=== PATIENT | female | born 1960 | race Caucasian/White ===

== ENCOUNTER 2018-02-25 13:14 | Inpatient (IN) | payer MEDICARE, MEDICAID ==
[2018-02-25 13:51] LABS: #Basophils 0.1 thou/uL (0.0-0.2); #Lymphocytes 2.6 thou/uL (1.20-3.40); #Monocytes 1.5 thou/uL (0.11-0.59); #Neutrophils 10.6 thou/uL (1.40-6.50); %Basophils 0.4 % (0.0-1.0); %Eosinophils 0.1 % (0.0-10.0); %Lymphocytes 17.7 % (21.0-51.0); %Monocytes 10.1 % (0.0-10.0); %Neutrophils 71.7 % (42.0-75.0); Hemoglobin 13.2 g/dL (12.0-16.0); Mean Corpuscular HGB CONC 35.4 g/dL (32.0-36.0); Mean Corpuscular Hemoglobin 33.9 pg (27.0-31.0); Mean Corpuscular Volume 95.8 fl (81.0-99.0); Mean Platelet Volume 7.1 fL (7.4-10.4); Platelet Count 257 thou/uL (130-400); RBC Distribution Width 11.5 % (11.5-14.5); Red Blood Cell (RBC) Count 3.88 mill/uL (4.20-5.40); White Blood Cell (WBC) Count 14.8 thou/uL (4.8-10.8)
[2018-02-25 14:12] LABS: Acetaminophen Less than 6.0 mcg/mL (10.0-30.0); Alcohol Less than 10 mg/dL (Less than 10); Salicylate Less than 8.0 mg/dL (15.0-30.0)
[2018-02-25 14:13] LABS: ALT (SGPT) 41 U/L (8-55); AST (SGOT) 66 U/L (5-34); Alkaline Phosphatase 125 U/L (40-150); Anion Gap 12 mmol/L (10-20); BUN (Urea Nitrogen) 24 mg/dL (9.8-20.1); Bilirubin, Total 0.8 mg/dL (0.2-1.2); CK (CPK) 2150 U/L (29-168); Calc. Creatinine Clearance 0 mL/min (70-130); Calcium 8.8 mg/dL (7.8-10.44); Carbon Dioxide 23 mmol/L (22-29); Chloride 109 mmol/L (98-107); Estimated GFR-MDRD 59; Globulin 2.3 g/dL (2.4-3.5); Glucose 160 mg/dL (70-105); Protein, Total 6.3 g/dL (6.0-8.3); Sodium 141 mmol/L (136-145)
[2018-02-25 14:28] LABS: Potassium 2.8 mmol/L (3.5-5.1)
[2018-02-25] MEDS ORDERED: Sodium Chloride 0.9% 1,000 ML IV SCH (14:45)
[2018-02-25 14:53] LABS: Troponin I Less than 0.010 ng/mL (< 0.028)
[2018-02-25] MEDS ORDERED: Potassium Chloride 20 MEQ in Premix Bag 1 BAG IVPB SCH (15:00)
[2018-02-25 16:31] VITALS: BMI 31.1
[2018-02-25] MEDS ORDERED: cloNIDine 0.1 MG TAB PO PRN (16:37)
[2018-02-25] MEDS ORDERED: Benzonatate 100 MG CAP PO PRN (16:37)
[2018-02-25] MEDS ORDERED: hydrALAZINE 20 MG/ML VIAL SLOW IVP PRN (16:37)
[2018-02-25] MEDS ORDERED: Ondansetron ODT 4 MG TAB PO PRN (16:37)
[2018-02-25] MEDS ORDERED: Lorazepam 2 MG/ML VIAL SLOW IVP PRN (16:37)
[2018-02-25] MEDS ORDERED: Ondansetron HCl/PF 4 MG/2 ML Vial IVP PRN (16:37)
[2018-02-25] MEDS: NS 0.9% w/ 40 MEQ KCL 1,000 ML IV SCH (17:39)
[2018-02-25] MEDS: Acetaminophen 500 MG TAB PO PRN (17:39)
--- NOTE | 2018-02-25 19:58 | HP ---
DATE OF ADMISSION: 02/25/2018 PRIMARY CARE PHYSICIAN: Jose lorenz. CHIEF COMPLAINT: Altered mental status. HISTORY OF PRESENT ILLNESS: This is a 58-year-old female with history of bipolar disorder, schizophrenia, anxiety and depression who presented to [facility] in [facility] from [facility] for altered mentation. The patient apparently found b y her landlord on 02/22/2018 with confusion, incoherent speech and being found down on the floor. Th e patient apparently was found with multiple medications near her, some crushed pills as well. The p atient was noted with altered mentation, agitation, confusion, and some hallucinations, stating ants were coming out of her ears. Upon review of the medical record, the patient apparently has been to [facility] emergency room approximately 3 times in the last 4 days. The patient was initially noted to be co nfused, agitated, poorly groomed with multiple bruises on the elbows and knees. Initial drug screeni was performed showing evidence of opiates, tricyclics, amphetamines and benzodiazepines. The jann ent received IV fluids x2 liters in addition to Ativan and Geodon. The patient was transferred to [facility] Emergency Department for further evaluation. The patient currently unable to provi de any specific history due to confusion and altered mentation and most of the history is obtained th rough review of electronic medical record and discussions with the emergency room attending. Initial metabolic workup in the emergency room showed evidence of rhabdomyolysis with total CK of 2150. The patient was also noted with hypokalemia with potassium level 2.8. The patient received potassium ch loride infusion as well as intravenous fluids as outlined previously. PAST MEDICAL HISTORY: 1. Bipolar disorder. 2. Hypothyroidism. 3. Hyperlipidemia. 4. Chronic back pain. 5. Hypertension. 6. History of ischemic cerebrovascular accident in 2012. 7. Question of schizophrenia. 8. Depression. 9. Tobacco abuse. PAST SURGICAL HISTORY: 1. Status post section x2. 2. Status post hysterectomy. CURRENT MEDICATIONS: Listed in the electronic medical record and will need to be confirmed with [facility] ly members. 1. Lyrica 75 mg p.o. b.i.d. 2. Seroquel 200 mg p.o. at bedtime. 3. Strattera 40 mg once daily. 4. Citalopram 40 mg once daily. 5. Xanax 2 mg p.o. b.i.d. p.r.n. 6. Clonidine 0.1 mg p.o. t.i.d. 7. Lipitor 80 mg p.o. at bedtime. 8. Tylenol No. 3, 300 mg/30 mg 1 tab p.o. q.8. hours p.r.n. 9. Chantix 1 mg p.o. b.i.d. 10. Nexium 20 mg p.o. daily. 11. Phentermine 37.5 mg p.o. daily. 12. Zanaflex 4 mg q.8 hours. p.r.n. 13. Levothyroxine 25 mcg p.o. daily. 14. Enteric-coated aspirin 81 mg 1 tab p.o. daily. 15. Albuterol metered dose inhaler 1-2 puffs q.6 hours p.r.n. 16. Multivitamin 1 tab p.o. daily. ALLERGIES: No known drug allergies. FAMILY HISTORY: Positive for hypertension. SOCIAL HISTORY: Patient resides in the [place], [place] area. The patient states she is original ly from [place]. Smokes up to half a pack of cigarettes daily. No alcohol or illicit drug u se per patient report. Lives independently in an apartment. Has 2 sons and a sister who cares for h er. One of her sons in [place], [place]. REVIEW OF SYSTEMS: Unobtainable due to patient's altered mentation and confusion. PHYSICAL EXAMINATION: VITAL SIGNS: On admission, blood pressure 112/100, pulse 95, respiratory rate 22, temperature 98 deg chito Fahrenheit, O2 saturation 98% on room air. GENERAL APPEARANCE: This is a 58-year-old female, disheveled, agitated, in mild to moderat e distress. HEENT: Pupils are equal, round, and reactive to light and accommodation. Extraocular muscles are in tact. Left conjunctival hemorrhage laterally. Nares patent. OP is clear. Teeth in poor repair. N o oral lesions noted. Oral mucosa dry. NECK: Supple, no cervical adenopathy, no thyromegaly, no carotid bruits, no JVD appreciated. Cervic al spine with full active and passive range of motion. No meningeal signs appreciated. CHEST: Diminished breath sounds in the bases bilaterally. No expiratory wheeze or rhonchi. CARDIOVASCULAR: S1, S2 with distant heart sounds. No murmur, rub or gallop appreciated. ABDOMEN: Obese, soft, nontender, nondistended. Bowel sounds are positive in all four quadrants. Th ere is no hepatosplenomegaly, no abdominal bruits, no rebound or guarding appreciated. EXTREMITIES: Warm and dry with fair turgor. Multiple areas of contusions of the knees, shins and el bow region bilaterally. Pulses are palpable distally at the dorsalis pedis, posterior tibial, and po pliteal arteries bilaterally. Capillary refill less than 2 seconds. NEUROLOGIC: Alert and oriented x1. Agitated, confused, random arm movements noted. Follows some co mmands, but not consistently. The patient not observed ambulatory during this exam. Speech is slurr ed. PERTINENT LABORATORY AND X-RAY FINDINGS: Sodium 141, potassium 2.8, chloride 109, CO2 of 23, BUN 24, creatinine 0.97, estimated GFR 59, glucose 160, calcium 8.8, AST 66, ALT of 41, alkaline phosphatase 125. Total CK 2150, troponin I negative x1. CK-MB 31. TSH 0.74. CBC showed a white blood cell co unt of 14.8, hemoglobin 13, hematocrit 37, platelet count 257 with normal differential. Urine drug s creen dated 02/25/2018 positive for opiates, tricyclics, amphetamines and benzodiazepines. Plasma al cohol level less than 10. CT of the brain without contrast dated 02/25/2018 showed motion degradatio n with limited evaluation. No obvious acute infarct. Chronic ischemic white matter changes noted. Portable chest x-ray dated 02/25/2018 showed no acute cardiopulmonary process. EKG dated 02/25/2018 by my interpretation shows sinus mechanism with heart rate in the 80s. Normal R-wave progression not ed in the precordial leads. Normal axis. No acute ST-T wave changes appreciated. ASSESSMENT AND PLAN: 1. Acute toxic metabolic encephalopathy. The patient will be admitted to the stroke unit. Suspect multifactorial including potential drug overdose with prescription and illicit influence. We will co ntinue general supportive measures. Serial neurologic exams. The patient will be placed on a drug h oliday. Continue general metabolic support including correction of hypokalemia and likely dehydratio n. Ativan 1 mg IV q.4 hours p.r.n. agitation and combativeness. 2. Acute rhabdomyolysis. We will continue intravenous normal saline at 100 mL per hour. Repeat tot al CK in the a.m. 3. Acute hypokalemia. Continue potassium chloride supplementation with 40 mEq and normal saline. R epeat potassium level in the a.m. 4. Dehydration. We will continue intravenous normal saline as stated previously. Encourage free wa ter intake as clinically tolerated. 5. Bipolar disorder. We will consider [facility] evaluation when patient clinically stabilizes medically. 6. Hypertension. We will resume home antihypertensive regimen once home regimen is confirmed. Hydr alazine and clonidine p.r.n. 7. Prophylaxis. Sequential compression devices while in bed. Pepcid 20 mg p.o. b.i.d. PT evaluati on for functional assessment. Case management consult for disposition planning. 8. Code status is FULL. Surrogate medical decision maker is patient's sister.
[2018-02-25] MEDS: Famotidine 20 MG TAB PO SCH (20:05)
[2018-02-26] MEDS: NS 0.9% w/ 40 MEQ KCL 1,000 ML IV SCH (03:29)
[2018-02-26 05:31] LABS: ALT (SGPT) 43 U/L (8-55); AST (SGOT) 55 U/L (5-34); Albumin 3.6 g/dL (3.5-5.0); Alkaline Phosphatase 117 U/L (40-150); Anion Gap 10 mmol/L (10-20); BUN (Urea Nitrogen) 12 mg/dL (9.8-20.1); Bilirubin, Total 0.7 mg/dL (0.2-1.2); Calc. Creatinine Clearance 102 mL/min (70-130); Calcium 8.5 mg/dL (7.8-10.44); Carbon Dioxide 23 mmol/L (22-29); Chloride 113 mmol/L (98-107); Estimated GFR-MDRD 82; Globulin 2.2 g/dL (2.4-3.5); Glucose 153 mg/dL (70-105); Magnesium 1.6 mg/dL (1.6-2.6); Potassium 3.3 mmol/L (3.5-5.1); Protein, Total 5.8 g/dL (6.0-8.3); Sodium 143 mmol/L (136-145)
[2018-02-26 05:34] LABS: Band 5 % (5-11); Hemoglobin 12.8 g/dL (12.0-16.0); Lymphocytes 17 % (21-51); MDiff Complete? YES; Mean Corpuscular HGB CONC 33.6 g/dL (32.0-36.0); Mean Corpuscular Hemoglobin 32.3 pg (27.0-31.0); Mean Corpuscular Volume 96.1 fl (81.0-99.0); Monocytes 6 % (0-10); Neutrophil 72 % (42-75); PLT Morphology Comment Appears Adequate; Platelet Count 247 thou/uL (130-400); RBC Distribution Width 11.7 % (11.5-14.5); Red Blood Cell (RBC) Count 3.98 mill/uL (4.20-5.40); White Blood Cell (WBC) Count 12.2 thou/uL (4.8-10.8)
[2018-02-26] MEDS: Acetaminophen 500 MG TAB PO PRN (08:07)
[2018-02-26] MEDS: Famotidine 20 MG TAB PO SCH ×2 (08:08→19:55)
[2018-02-26] MEDS ORDERED: PROVENTIL INHALER 6.7 G (200 INHALATIONS) INH PRN (11:44)
--- NOTE | 2018-02-26 11:53 | PDOC.PN ---
- Subjective Encounter Start Date: 02/26/18 Encounter Start Time: 11:35 Subjective: f/u for AMS, Rhabdomyolysis and dehydration. Polypharmacy on UDS -: but pt does not remember the last 24h. Feels better today and wants to -: eat. Denies suicidal thoughts currently. - Objective Resuscitation Status: Resuscitation Status FULL:Full Resuscitation MAR Reviewed: Yes Vital Signs & Weight: Vital Signs (12 hours) Temp Pulse Resp BP BP Pulse Ox 02/26/18 11:17 98.6 F 77 20 165/101 H 95 02/26/18 08:08 191/92 H 02/26/18 08:00 98.7 F 81 18 02/26/18 07:21 98.7 F 81 18 191/92 H 94 L 02/26/18 03:54 99.2 F 86 16 175/113 H 97 Weight Weight 167 lb 4.8 oz I&O: 02/25/18 02/26/18 02/27/18 06:59 06:59 06:59 Intake Total 1260 Balance 1260 Result Diagrams: 02/27/18 05:12 02/27/18 05:12 Additional Labs: Laboratory Tests 02/25/18 02/25/18 02/25/18 10:06 13:40 13:40 WBC Potassium 2.8 L* Creatine Kinase 2150 H CK-MB (CK-2) TSH 3rd Generation 0.7448 Urine Opiates Screen Detected H Ur Tricyclics Screen Detected H Ur Amphetamines Screen Detected H U Benzodiazepines Scrn Detected H 02/25/18 02/25/18 02/26/18 13:40 13:40 05:01 WBC 14.8 H Potassium Creatine Kinase CK-MB (CK-2) 31.0 H* TSH 3rd Generation 0.4654 Urine Opiates Screen Ur Tricyclics Screen Ur Amphetamines Screen U Benzodiazepines Scrn EKG Reviewed by me: Yes (Tele - SR) Phys Exam - Physical Examination Constitutional: NAD alert, responsive, cooperative, anxious HEENT: PERRLA, moist MMs, sclera anicteric, oral pharynx no lesions Neck: no nodes, no JVD, supple few exp wheezes bilat Respiratory: no rales, no rhonchi S1, S2 Cardiovascular: RRR, no significant murmur, no rub, gallop Gastrointestinal: soft, non-tender, no distention, positive bowel sounds Musculoskeletal: no edema, pulses present Neurological: non-focal, normal sensation, moves all 4 limbs anxious Psychiatric: A&O x 3 Skin: no rash, normal turgor, cap refill <2 seconds Dx/Plan (1) Toxic metabolic encephalopathy Code(s): G92 - TOXIC ENCEPHALOPATHY Status: Acute Comment: Improved, multifactorial given polypharmacy, unclear if intentional OD as etiology, [facility] consult (2) Rhabdomyolysis Code(s): M62.82 - RHABDOMYOLYSIS Status: Acute Comment: Improving, continue free-H2O intake, repeat total CK (3) Hypokalemia Code(s): E87.6 - HYPOKALEMIA Status: Acute Comment: KCL 40meq BID, repeat K + level in am (4) Dehydration Code(s): E86.0 - DEHYDRATION Status: Acute Comment: Improved, continue IVF's , encourage increased free-H2O intake (5) Bipolar 1 disorder Code(s): F31.9 - BIPOLAR DISORDER, UNSPECIFIED Status: Chronic Comment: Continue Seroquel 200mg HS (6) HTN (hypertension) Code(s): I10 - ESSENTIAL (PRIMARY) HYPERTENSION Status: Chronic Qualifiers: Hypertension type: essential hypertension Qualified Code(s): I10 - Essential (primary) hypertension Comment: Continue Clonidine 0.1mg TID (7) Hypothyroidism Code(s): E03.9 - HYPOTHYROIDISM, UNSPECIFIED Status: Chronic Comment: Levothyroxine 25mcg daily - 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
[2018-02-26] MEDS ORDERED: Potassium Chloride 20 MEQ TAB PO SCH (13:15)
[2018-02-26] MEDS: ALPRAZolam 1 MG TAB PO PRN (13:19)
[2018-02-26] MEDS: cloNIDine 0.1 MG TAB PO SCH ×2 (14:54→19:56)
[2018-02-26] MEDS: Potassium Chloride 20 MEQ TAB PO SCH (16:54)
[2018-02-26] MEDS: Pregabalin 75 MG CAP PO SCH (19:56)
[2018-02-27 05:49] LABS: ALT (SGPT) 41 U/L (8-55); AST (SGOT) 38 U/L (5-34); Albumin 3.3 g/dL (3.5-5.0); Alkaline Phosphatase 111 U/L (40-150); Anion Gap 6 mmol/L (10-20); BUN (Urea Nitrogen) 7 mg/dL (9.8-20.1); Bilirubin, Total 0.5 mg/dL (0.2-1.2); CK (CPK) 474 U/L (29-168); Calc. Creatinine Clearance 103 mL/min (70-130); Calcium 8.7 mg/dL (7.8-10.44); Carbon Dioxide 27 mmol/L (22-29); Chloride 114 mmol/L (98-107); Estimated GFR-MDRD 83; Glucose 190 mg/dL (70-105); Magnesium 1.7 mg/dL (1.6-2.6); Potassium 3.6 mmol/L (3.5-5.1); Protein, Total 5.3 g/dL (6.0-8.3); Sodium 143 mmol/L (136-145)
[2018-02-27 05:56] LABS: Eosinophils 1 % (0-10); Hemoglobin 12.5 g/dL (12.0-16.0); Lymphocytes 33 % (21-51); MDiff Complete? YES; Mean Corpuscular HGB CONC 33.6 g/dL (32.0-36.0); Mean Corpuscular Hemoglobin 32.6 pg (27.0-31.0); Mean Corpuscular Volume 97.2 fl (81.0-99.0); Monocytes 8 % (0-10); Neutrophil 58 % (42-75); PLT Morphology Comment Appears Adequate; Platelet Count 239 thou/uL (130-400); RBC Distribution Width 11.7 % (11.5-14.5); RBC Morphology Normal; Red Blood Cell (RBC) Count 3.85 mill/uL (4.20-5.40); White Blood Cell (WBC) Count 9.1 thou/uL (4.8-10.8)
[2018-02-27] MEDS ORDERED: Levothyroxine Sodium 25 MCG TAB PO SCH (06:00)
[2018-02-27] MEDS: Pregabalin 75 MG CAP PO SCH (08:39)
[2018-02-27] MEDS: cloNIDine 0.1 MG TAB PO SCH ×2 (08:39→14:50)
[2018-02-27] MEDS: Potassium Chloride 20 MEQ TAB PO SCH ×2 (08:39→17:48)
[2018-02-27] MEDS: Famotidine 20 MG TAB PO SCH (08:39)
[2018-02-27] MEDS ORDERED: Varenicline Tartrate 0.5 MG TAB PO SCH (09:00)
[2018-02-27] MEDS ORDERED: Citalopram 20 MG TAB PO SCH (09:00)
[2018-02-27] MEDS ORDERED: ATOMOXETINE HCL 40 MG PO SCH (09:00)
[2018-02-27] MEDS: ALPRAZolam 1 MG TAB PO PRN (14:52)
[2018-02-27 17:14] VITALS: BP 141/85; TEMP 98.6
--- NOTE | 2018-02-28 02:46 | DIS ---
DATE OF ADMISSION: 02/25/2018 DATE OF DISCHARGE: 02/27/2018 DISCHARGE DIAGNOSES: 1. Toxic metabolic encephalopathy, multifactorial including polypharmacy, improved. 2. Rhabdomyolysis, improved. 3. Hypokalemia, improved. 4. Dehydration, resolved. 5. Bipolar disorder. 6. Hypertension. 7. Hypothyroidism. CONSULTATIONS: [facility]. PERTINENT LAB AND X-RAY FINDINGS: Potassium ranged between 2.8 to 3.6, AST ranged between 38 to 66. Total CK ranged between 474 to 2219. TSH 0.47. CBC showed a white blood cell count ranged between 9.1 to 14.8. Urine drug screen positive for opiates, tricyclics, amphetamines and benzodiazepines. CT of the brain without contrast dated 02/25/2018 showed limited evaluation due to motion degradation . Chronic small vessel ischemic changes noted without acute process. Portable chest x-ray dated 11/2017 showed no acute cardiopulmonary process. HOSPITAL COURSE: The patient was admitted to the stroke unit after initially presenting with altered mental status in the context of polypharmacy and questionable suicidal intent. The patient was note d with severe dehydration and rhabdomyolysis after being found down by her landlord. The patient und erwent general evaluation including metabolic screening showing hypokalemia as well as evidence of de hydration. The patient received intravenous fluids as well as potassium supplementation and avoidanc e of all psychotropic medications. The patient did clinically improve after initial supportive measu res and was evaluated by the [facility] Service. [facility] due to ongoing psychotic features as well as hallucinations and delusions. The patient overall remained clinically stable during the hospital course, tolerating regular oral intake without further evidence of suicidal intent or ideation. I have examined the patient at the time of discharge and discussed discharge planning. The patient will transfer to [facility], 02/27/2018. DISCHARGE MEDICATIONS: 1. Ventolin HFA 2 puffs inhaled q.6 hours p.r.n. 2. Xanax 2 mg p.o. b.i.d. p.r.n. 3. Atomoxetine 40 mg p.o. daily. 4. Lipitor 80 mg p.o. at bedtime. 5. Citalopram 40 mg p.o. daily. 6. Clonidine 0.1 mg p.o. t.i.d. 7. Levothyroxine 25 mcg p.o. daily. 8. Lyrica 75 mg p.o. b.i.d. 9. Seroquel 200 mg p.o. at bedtime. 10. Zanaflex 1 tab p.o. q.6 hours p.r.n. 11. Chantix 1 tablet p.o. daily. FOLLOWUP: The patient will follow up with her primary care provider, Dr. Aj Mcintyre after dis charge from [facility]. CONDITION ON DISCHARGE: Stable. ACTIVITY: Ad sarah. DIET: Regular. CODE STATUS: FULL. DISPOSITION: Discharged to [facility], [place], [place], 02/27/2018. Total time preparing and coordinating discharge is 35 minutes.
== END 2018-02-27 19:30 | disposition short-term general hospital (02) | DRG 557 ==
LOC: ERS 13:14 → 2SE 15:57
PROVIDERS: ADMIT Family Medicine; ATTEND Family Medicine
DX: M62.82 Rhabdomyolysis (principal); G92 Toxic encephalopathy; E87.6 Hypokalemia; E86.0 Dehydration; F31.9 Bipolar disorder, unspecified; I10 Essential (primary) hypertension; E03.9 Hypothyroidism, unspecified; F22 Delusional disorders; F20.9 Schizophrenia, unspecified; F41.9 Anxiety disorder, unspecified; E78.5 Hyperlipidemia, unspecified; Z86.73 Personal history of transient ischemic attack (TIA), and cerebral infarction without residual deficits; F17.210 Nicotine dependence, cigarettes, uncomplicated; F19.120 Other psychoactive substance abuse with intoxication, uncomplicated
CPT/HCPCS: 36415; 80053; 80307; 82550; 83735; 84443; 85007; 85027; 96361; 96365; A4216; G8978-GP-CI; G8979-GP-CI; G8980-GP-CI; J3480

== ENCOUNTER 2018-06-02 15:49 | Emergency (ER) | payer MEDICARE, MEDICAID, OTHER ==
[2018-06-02 16:52] LABS: Anion Gap 12 mmol/L (10-20); BUN (Urea Nitrogen) 10 mg/dL (9.8-20.1); Calc. Creatinine Clearance 0 mL/min (70-130); Calcium 8.5 mg/dL (7.8-10.44); Carbon Dioxide 21 mmol/L (22-29); Chloride 109 mmol/L (98-107); Estimated GFR-MDRD 68; Glucose 281 mg/dL (70-105); Potassium 3.9 mmol/L (3.5-5.1); Sodium 138 mmol/L (136-145)
[2018-06-02] MEDS ORDERED: Ketorolac Tromethamine 30 MG/ML VIAL ONE (17:10)
== END 2018-06-02 18:47 | disposition home or self-care (01) ==
LOC: ERS 15:49
DX: J45.901 Unspecified asthma with (acute) exacerbation (principal); R73.9 Hyperglycemia, unspecified; E78.5 Hyperlipidemia, unspecified; F17.210 Nicotine dependence, cigarettes, uncomplicated
CPT/HCPCS: 36415; 36416; 94640; 94760; 96361; 96374; J1885; J7620